=== PATIENT | female | born 1950 | race Caucasian/White ===

== ENCOUNTER 2016-12-14 13:10 | Inpatient (IN) | payer OTHER, MEDICARE ==
[~2016-12-14] VITALS: Ht 152.4 cm; Wt 82.3 kg
[2016-12-21] MEDS ORDERED: TRIA37.53 PO (09:38)
[2016-12-21] MEDS ORDERED: ROSU5 PO (09:38)
[2016-12-21] MEDS ORDERED: ASPI1TAB69 PO (09:39)
[2016-12-21] MEDS ORDERED: NITR1CAP36 PO (09:39)
[2016-12-21] MEDS ORDERED: VITA10003 PO (09:50)
[2016-12-21] MEDS ORDERED: ZANT150T2 PO (14:39)
[2016-12-21] MEDS ORDERED: TUMS500C CHEW (14:39)
[2016-12-22] MEDS ORDERED: SODIUM CHLOR 0.9% 250 ML INJ 250 ML ONE (05:40)
[2016-12-22] MEDS ORDERED: VANCOMYCIN HCL 1000 MG VIAL ONE (05:41)
[2016-12-22] MEDS ORDERED: LACTATED RINGER'S 1000 ML INJ 1,000 ML ONE (05:41)
[2016-12-22] MEDS: CHLORHEXIDINE GLUCONATE 4% SOLN 120 ML BTL TOPICAL SCH (05:46)
[2016-12-22 05:53] VITALS: BP 166/76; PULSE 68; RESP 18; TEMP 98.4; O2SAT 100
[2016-12-22 06:05] LABS: BLOOD, URINE NEG (NEG); COMMENT (UR) CULT NOT INDICATED; CULTURE IF INDICATED CULT NOT INDICATED; GLUCOSE,URINE NEG (NEG); HYALINE CAST, URINE 1 /lpf (RARE); KETONE, URINE NEG (NEG); MUCUS URINE FEW /lpf (OCC); NITRITE,URINE NEG (NEG); SQUAMOUS EPITHELIAL CELL URINE <1 /hpf (0-5)
[2016-12-22 06:06] LABS: URINE COLOR YELLOW (YELLW/STRAW)
[2016-12-22] MEDS ORDERED: LACTATED RINGER'S 1000 ML IV PRN (06:15)
[2016-12-22] MEDS ORDERED: INSULIN HUMAN REGULAR 1,000 UNITS/10 ML VIAL SQ PRN (06:15)
[2016-12-22] MEDS ORDERED: CHLORHEXIDINE GLUCONATE 2 % 1 PACK (2 CLOTHS) TOPICAL PRN (06:15)
[2016-12-22] MEDS ORDERED: SODIUM CHLORID 0.9% 500 ML IV PRN (06:15)
[2016-12-22] MEDS ORDERED: METOPROLOL TARTRATE 25 MG TAB PO PRN (06:15)
[2016-12-22] MEDS ORDERED: POVIDONE IODINE 5% (ANTISEPSIS KIT) 4 APPLICATIONS EACH NARE PRN (06:15)
[2016-12-22] MEDS ORDERED: VANCOMYCIN 1000 MG/NS 250 ML (for <70 kg) IV SCH ×2 (06:30)
[2016-12-22] MEDS: EXPAREL PERI-ARTICULAR INJECTION (TOTAL VOL. 60 ML) P-ARTICULR SCH ×4 (06:30→07:46)
[2016-12-22] MEDS ORDERED: TRANEXAMIC ACID IV SCH (06:30)
[2016-12-22] MEDS ORDERED: SODIUM CHLORIDE 0.9% IV SCH (06:30)
[2016-12-22] MEDS ORDERED: ceFAZolin 2 GM PREMIX 50 ML IV SCH (06:30)
[2016-12-22] MEDS ORDERED: GENTAMICIN SULFATE 80 MG/2 ML VIAL ONE (06:37)
[2016-12-22] MEDS ORDERED: MIDAZOLAM HCL 2 MG/2 ML VIAL ONE (06:44)
[2016-12-22] MEDS ORDERED: ACETAMINOPHEN 1000 MG/100 ML VIAL IV ONE (06:44)
[2016-12-22] MEDS ORDERED: fentaNYL CITRATE 250 MCG/5 ML AMP ONE (06:45)
[2016-12-22] MEDS ORDERED: DEXAMETHASONE SOD PHOS 4 MG/ML VIAL ONE (06:45)
[2016-12-22] MEDS ORDERED: FAMOTIDINE 20 MG/2 ML VIAL ONE (06:45)
[2016-12-22] MEDS ORDERED: XARE10TA PO (08:29)
[2016-12-22] MEDS ORDERED: WALKER/ADULT/FO1 MIS (08:29)
[2016-12-22] MEDS ORDERED: HYDR-3366 PO (08:29)
--- NOTE | 2016-12-22 08:29 | HHI.FF ---
Face to Face Verification Diagnosis: (1) S/P total hip arthroplasty Physical Therapy Gait training Hip: Total hip, Protocol: Left, Progress to weight bearing Left LE Weight Bearing: WB as tolerated Nursing Dressing Changes: Do not change dressing, Coverderm/Primapore (begin adding xeroform POD 10) I have seen patient Nadeen Almonte on 12/22/16. My clinical findings support the need for the requested home health care services because: Ltd mobility - disease progression I certify that my clinical findings support that this patient is homebound because: Post-op weakness Luis Acosta Dec 22, 2016 08:29
--- NOTE | 2016-12-22 08:31 | PD.ORT.PN ---
Subjective Subjective Remarks POD 0 s/p left LOUISE Objective Vitals Vital Signs Date Time Temp Pulse Resp B/P Pulse Ox O2 Delivery O2 Flow Rate FiO2 12/22/16 05:53 98.4 68 18 166/76 100 Objective Remarks LLE: dressing clean and dry. intact. +drain Assessment & Plan Assessment and Plan 1) Left LOUISE - POD 1 -WBAT -DC drain POD 2 with first dressing change -daily dressing changes POD2 -CM for home with C vs rehab -plan for DC Sunday -DVT prophylaxis with lovenox and discharge with xarelto -scripts on chart -f/u with [facility] or [facility] in 2 weeks Luis Acosta Dec 22, 2016 08:31
--- NOTE | 2016-12-22 09:12 | PD.OP ---
cc: Pete Manzanares MD Operative Report Date of Surgery: Dec 22, 2016 Preoperative Diagnosis: Severe left hip osteoarthritis Postoperative Diagnosis: Procedure: Left total hip arthroplasty via anterior approach Anesthesia: Gen. Surgeon: Pete Manzanares Sample Distributor(s): AUGUSTO Tran PA-C The surgical procedure was assisted by my physician virtual customer assistant. My P.A. presence was necessary throughout this case for the manipulation and positioning of the surgical extremity. My P.A. was assisting me throughout the duration of this procedure. The skill set of a physician virtual customer assistant was medically necessary to complete this procedure. During the surgical case the director surgical was working at the back table and the physician virtual customer assistant was directly assisting me. Operation and Findings: PLAN OF ACTIVITY Weight bear as tolerated. DRAINS: 7-mm MARY ANN drain. IMPLANTS USED DePuy Corail size 10 collared stem with a size [48] Spring Hope Gription cup and a [32 +1] ceramic Biolox ceramic head. DETAILS OF PROCEDURE: This patient has a long history of hip pain. Patient was found to have severe osteoarthritis. The patient had radiographic evidence of joint space narrowing with [id number] arthritis and osteophytes around the acetabulum as well as the femoral head. There was also some cystic changes. The patient failed conservative treatment with pain medications, anti-inflammatories, physical therapy, assistive devices including a cane, as well as therapeutic injection of the hip. Patient's hip arthritis was limiting his ability to ambulate and perform activities of daily living. The patient wished to proceed with surgery and informed consent was obtained. Operative site was marked. I discussed both posterior approach and anterior approach with the patient and decision was made for anterior approach. Patient was brought to OR and placed on OR table. IV sedation and general anesthesia was administered by anesthesiologist. Patient positioned on a Janette table and was given IV antibiotics. Time-out procedure was performed. The hip and thigh were prepped with alcohol followed by Hibiclens. The thigh was draped in the usual sterile fashion. Clean Air Suite was used for this procedure. The procedure began with a 5-inch incision over the anterolateral thigh. Subcutaneous tissue was dissected with Bovie. The fascia over the tensa fasciae latae was incised. Care was taken to avoid injury to the lateral femoral cutaneous nerve. The tensor muscle was retracted laterally. Sartorius was retracted medially. Retractors were now placed. The reflected head of the rectus is now elevated. A capsulotomy was performed over the anterior head capsule. Sutures were placed to help retract the capsule. At this point the femoral head and neck were identified. With soft tissue protected, oscillating saw was used to make a cut through the femoral neck, the femoral head was now removed. At this point attention was turned to preparation of the acetabulum. The labrum was excised. The acetabulum was sequentially reamed up to size [48]. A Spring Hope cup was now placed. Fluoroscopy was used to aid in identification of appropriate version. Cup was fully impacted and found to have excellent fit. Hole eliminator was now placed. The liner was now impacted into the cup. At this point the hip was externally rotated. A hook was placed around the proximal femur. The capsule was released off the lateral and medial femur. The hip was now extended and adducted. Retractors were placed around the proximal femur to allow for exposure. A box osteotome was used to remove the lateral cortex of the femoral neck. A broach was used to help lateralize the prosthesis. Canal finder was used to create a path down the canal. Next, the canal was sequentially broached up to size [10]. This was found to be an excellent fit. Calcar planer was placed. A standard head was placed, and the hip was reduced. The hip was found to have excellent stability with good range of motion. The leg lengths were measured under fluoroscopy and found to be equal compared to preoperatively. Trial broach was removed. The Corail stem was opened. Stem was fully impacted into the proximal femur in appropriate version. The femoral head was placed. The hip was again reduced. Fluoroscopy confirmed excellent alignment of prosthesis. The wound was thoroughly irrigated and capsule was closed with #1 Vicryl. The fascia over the tensor fasciae muscle was closed with #1 Vicryl, subcutaneous tissue was closed with 3-0 Vicryl and the skin was closed with betsey and Dermabond skin closure. The capsule layers were injected with a mixture of saline and bupivicaine. Dressings were applied. The patient was transferred to Recovery Room in stable condition. Pete Manzanares MD Dec 22, 2016 09:12
[2016-12-22] MEDS ORDERED: NALOXONE HCL 0.4 MG/ML AMP IV PRN (09:15)
[2016-12-22] MEDS ORDERED: ONDANSETRON HCL 4 MG/2 ML VIAL IVP PRN (09:15)
[2016-12-22] MEDS ORDERED: MORPHINE SULFATE 4 MG/ML INJ IV PUSH PRN (09:15)
[2016-12-22] MEDS ORDERED: Post-op Orders (for Pharmacy) MISC XX ONE (09:15)
[2016-12-22] MEDS ORDERED: ACETAMINOPHEN/HYDROcodone 325 MG/10 MG TAB PO PRN (09:15)
[2016-12-22] MEDS ORDERED: ENOXAPARIN SODIUM 40 MG/0.4 ML SYRINGE SQ SCH (09:15)
[2016-12-22] MEDS ORDERED: TRANEXAMIC ACID INJ 1,000 MG in SODIUM CHLORIDE 0.9% INJ 100 ML IV SCH (09:30)
[2016-12-22] MEDS ORDERED: SODIUM CHLORIDE 0.9% FLUSH 10 ML FLUSH IV FLUSH PRN (09:45)
[2016-12-22] MEDS ORDERED: *morphine SULFATE 8 MG/ML PERIprocedure ONLY ONE ×2 (09:47→10:08)
[2016-12-22] MEDS: LACTATED RINGER'S 1000 ML INJ 1,000 ML IV SCH ×2 (09:51→20:50)
--- NOTE | 2016-12-22 10:25 | RADRPT ---
EXAM DATE/TIME: 12/22/2016 08:33 [facility] COMPARISON: No previous studies available for comparison. INDICATIONS : Post-op total left hip arthroplasty. MEDICAL HISTORY : None. SURGICAL HISTORY : None. ENCOUNTER: Initial ACUITY: 1 day PAIN SCORE: Non-responsive. LOCATION: Left HIP. FINDINGS: Left total hip arthroplasty is identified. The hardware is intact. Alignment is anatomic. The adjacen t pelvis is focally unremarkable. CONCLUSION: Satisfactory appearance of left LOUISE Bhaskar Fan MD on December 22, 2016 at 10:22 Board Certified Radiologist. This report was verified electronically.
--- NOTE | 2016-12-22 10:38 | RADRPT ---
EXAM DATE/TIME: 12/22/2016 09:27 [facility] COMPARISON: HIP LEFT (AP&LAT 2/3VWS) WO AP PELVIS, December 22, 2016, 8:33. INDICATIONS : Post op left hip replacement MEDICAL HISTORY : None. SURGICAL HISTORY : None. ENCOUNTER: Subsequent ACUITY: 1 day PAIN SCORE: Non-responsive. LOCATION: Left hip FINDINGS: Left total hip arthroplasty is noted. Femoral and acetabular components appear well seated. Surgical drain and skin betsey are present. Normal bone density. Small amount of subcutaneous air is seen. CONCLUSION: Postop left total hip arthroplasty, satisfactory appearance, components appear well seated. Elmer Hays MD on December 22, 2016 at 10:36 Board Certified Radiologist. This report was verified electronically.
[2016-12-22 10:40] VITALS: BP 129/70; PULSE 66; RESP 17; TEMP 95.9; O2SAT 100
[2016-12-22] MEDS ORDERED: DO NOT ADM ANY ANTICOAGULANT DRUGS PRN (11:00)
[2016-12-22] MEDS: KETOROLAC TROMETHAMINE 30 MG/ML (IVP) VIAL IV PUSH SCH ×2 (11:14→23:23)
[2016-12-22] MEDS ORDERED: PROPOFOL 200 MG/20 ML AMP IV ONE (12:00)
[2016-12-22] MEDS ORDERED: ONDANSETRON HCL 4 MG/2 ML VIAL IV PUSH ONE (12:00)
[2016-12-22] MEDS ORDERED: ePHEDrine/NS 25 MG/5 ML SYR IV ONE (12:00)
[2016-12-22] MEDS ORDERED: NEOSTIGMINE 3 MG/3 ML SYR IV ONE (12:00)
[2016-12-22] MEDS ORDERED: LACTATED RINGER'S 1000 ML INJ 1,000 ML IV ONE (12:00)
[2016-12-22] MEDS: ceFAZolin 2 GM PREMIX 50 ML IV SCH ×2 (13:57→20:49)
[2016-12-22 16:00] VITALS: BP 123/59; PULSE 58; RESP 16; TEMP 98.1; O2SAT 100
[2016-12-22] MEDS: VANCOMYCIN INJ 1,000 MG in SODIUM CHLOR 0.9% 250 ML INJ 250 ML IV SCH (18:06)
[2016-12-22] MEDS: NITROFURANTOIN MONOHYD MACROCR 100 MG CAP PO SCH (18:07)
[2016-12-22 20:15] VITALS: BP 117/67; PULSE 64; RESP 16; TEMP 96; O2SAT 100
[2016-12-22] MEDS: SODIUM CHLORIDE 0.9% FLUSH 10 ML FLUSH IV FLUSH SCH (20:50)
[2016-12-22] MEDS ORDERED: ATORVASTATIN 10 MG TAB PO SCH (21:00)
[2016-12-22 23:20] VITALS: BP 123/76; PULSE 66; RESP 16; TEMP 96; O2SAT 100
[2016-12-22] MEDS ORDERED: FAMOTIDINE 20 MG TAB PO PRN (23:30)
[2016-12-23] MEDS: ceFAZolin 2 GM PREMIX 50 ML IV SCH (02:23)
[2016-12-23 04:05] VITALS: BP 128/66; PULSE 68; RESP 16; TEMP 96.2; O2SAT 98
[2016-12-23 05:32] LABS: HEMATOCRIT 33.6 % (35.0-46.0); REVIEW FLAG FINAL
[2016-12-23] MEDS: CHLORHEXIDINE GLUCONATE 4% SOLN 120 ML BTL TOPICAL SCH (06:30)
[2016-12-23] MEDS: VANCOMYCIN INJ 1,000 MG in SODIUM CHLOR 0.9% 250 ML INJ 250 ML IV SCH (06:32)
[2016-12-23] MEDS: LACTATED RINGER'S 1000 ML INJ 1,000 ML IV SCH (06:35)
[2016-12-23 07:12] VITALS: BP 134/62; PULSE 70; RESP 17; TEMP 96.4; O2SAT 99
--- NOTE | 2016-12-23 07:59 | PD.ORT.PN ---
Subjective Post Op Day #: 2 Subjective Remarks POD #1 Patient sitting upright comfortably in bed. Admits left hip pain is well controlled. Admits to nausea and vomiting yesterday - subsided at this time. States she successfully walked yesterday. No new complaints. Objective Vitals Vital Signs Date Time Temp Pulse Resp B/P Pulse Ox O2 Delivery O2 Flow Rate FiO2 12/23/16 04:05 96.2 68 16 128/66 98 12/22/16 23:20 96.0 66 16 123/76 100 12/22/16 20:15 96.0 64 16 117/67 100 12/22/16 19:08 Room Air 12/22/16 16:00 98.1 58 16 123/59 100 12/22/16 10:40 95.9 66 17 129/70 100 12/22/16 10:15 97.4 61 16 141/74 100 Nasal Cannula 2 12/22/16 10:00 66 17 135/76 95 12/22/16 09:45 80 12 139/77 97 12/22/16 09:30 73 10 146/76 100 Simple Mask 6 12/22/16 09:26 96.0 108 14 146/67 100 Simple Mask 6 I/O 12/22/16 12/22/16 12/22/16 12/23/16 12/23/16 12/23/16 07:00 15:00 23:00 07:00 15:00 23:00 Intake Total 1000 ml 1622 ml 998 ml Output Total 480 ml 485 ml 1025 ml Balance 520 ml 1137 ml -27 ml Intake Oral 840 ml 240 ml IV Total 782 ml 758 ml Other 1000 ml Output Urine Total 400 ml 1000 ml Drainage Total 30 ml 85 ml 25 ml Estimated Blood Loss 200 ml Other 250 ml # Bowel Movements 0 0 Result Diagram: 12/23/16 0453 12/23/16 0453 Imaging Last 24 hours Impressions Hip and Pelvis X-Ray 12/22/16 0904 Signed Impressions: Service Date/Time: Thursday, December 22, 2016 09:27 - CONCLUSION: Postop left total hip arthroplasty, satisfactory appearance, components appear well seated. Elmer Hays MD Procedures Left LOUISE - [facility] Objective Remarks LLE: dressing clean and dry. intact. +drain Assessment & Plan Ortho Post Op Day #: 1 Problem List: (1) S/P total hip arthroplasty Assessment and Plan 1) Left LOUISE - POD 1 -WBAT -DC drain POD today - d/c pato today -daily dressing changes starting today -CM for home with [facility] vs rehab -plan for DC Sunday -DVT prophylaxis with lovenox and discharge with xarelto -scripts on chart -f/u with [facility] or [facility] in 2 weeks Gricelda Lema Dec 23, 2016 07:59
[2016-12-23 08:11] VITALS: O2SAT 100
[2016-12-23] MEDS ORDERED: NON-FORMULARY DRUG (Ranitidine (Zantac) 150 MG) PO SCH (09:00)
[2016-12-23] MEDS: SODIUM CHLORIDE 0.9% FLUSH 10 ML FLUSH IV FLUSH SCH ×2 (09:00→20:19)
[2016-12-23] MEDS: ENOXAPARIN SODIUM 30 MG/0.3 ML SYRINGE SQ SCH (10:28)
[2016-12-23] MEDS: KETOROLAC TROMETHAMINE 30 MG/ML (IVP) VIAL IV PUSH SCH ×2 (10:29→23:16)
[2016-12-23] MEDS: NITROFURANTOIN MONOHYD MACROCR 100 MG CAP PO SCH ×2 (10:29→18:50)
[2016-12-23] MEDS: TRIAMTERENE/HCTZ 37.5 MG/25 MG CAP PO SCH (10:30)
[2016-12-23 11:53] VITALS: BP 124/66; PULSE 64; RESP 17; TEMP 96.7; O2SAT 98
[2016-12-23 15:55] VITALS: BP 146/69; PULSE 63; RESP 17; TEMP 96.8; O2SAT 97
[2016-12-23] MEDS: DOCUSATE SODIUM 100 MG CAP PO SCH (20:18)
[2016-12-23] MEDS: ACETAMINOPHEN/HYDROcodone 325 MG/7.5 MG TAB PO PRN (20:18)
[2016-12-23 20:20] VITALS: BP 158/73; PULSE 73; RESP 16; TEMP 96.9; O2SAT 99
[2016-12-23] MEDS ORDERED: ASPIRIN EC 81 MG TABEC PO SCH (21:00)
[2016-12-23] MEDS ORDERED: CHOLECALCIFEROL (VIT D3) 1000 UNIT TAB PO SCH (21:00)
[2016-12-23] MEDS ORDERED: CRESTOR 5 MG PO SCH (21:00)
[2016-12-24 00:10] VITALS: BP 112/59; PULSE 65; RESP 16; TEMP 97.2; O2SAT 96
[2016-12-24 08:00] VITALS: BP 129/67; PULSE 69; RESP 16; TEMP 96; O2SAT 99
[2016-12-24] MEDS: NITROFURANTOIN MONOHYD MACROCR 100 MG CAP PO SCH (09:18)
[2016-12-24] MEDS: TRIAMTERENE/HCTZ 37.5 MG/25 MG CAP PO SCH (09:18)
[2016-12-24] MEDS: DOCUSATE SODIUM 100 MG CAP PO SCH (09:18)
[2016-12-24] MEDS: ENOXAPARIN SODIUM 30 MG/0.3 ML SYRINGE SQ SCH (09:19)
[2016-12-24] MEDS: SODIUM CHLORIDE 0.9% FLUSH 10 ML FLUSH IV FLUSH SCH (09:20)
[2016-12-24 12:00] VITALS: BP 108/76; PULSE 72; RESP 16; TEMP 96.2; O2SAT 100
--- NOTE | 2016-12-24 12:39 | PD.ORT.PN ---
Subjective Post Op Day #: 2 Subjective Remarks POD #2 Patient walking up and down the halls with PT. Admits left hip pain is well controlled and she is ready to go home. No new complaints. Objective Vitals Vital Signs Date Time Temp Pulse Resp B/P Pulse Ox O2 Delivery O2 Flow Rate FiO2 12/24/16 08:00 96.0 69 16 129/67 99 12/24/16 00:10 97.2 65 16 112/59 96 12/23/16 20:20 96.9 73 16 158/73 99 12/23/16 15:55 96.8 63 17 146/69 97 I/O 12/23/16 12/23/16 12/23/16 12/24/16 12/24/16 12/24/16 07:00 15:00 23:00 07:00 15:00 23:00 Intake Total 998 ml 720 ml 480 ml 240 ml Output Total 1025 ml 330 ml Balance -27 ml 390 ml 480 ml 240 ml Intake Oral 240 ml 720 ml 480 ml 240 ml IV Total 758 ml Output Urine Total 1000 ml 300 ml Drainage Total 25 ml 30 ml # Voids 3 1 1 # Bowel Movements 0 0 0 0 Result Diagram: 12/23/16 0453 12/23/16 0453 Imaging Last 24 hours Impressions Hip and Pelvis X-Ray 12/22/16 0904 Signed Impressions: Service Date/Time: Thursday, December 22, 2016 09:27 - CONCLUSION: Postop left total hip arthroplasty, satisfactory appearance, components appear well seated. Elmer Hays MD Procedures Left LOUISE - [facility] Objective Remarks LLE: dressing clean and dry. intact. NVI. no calf pain, negative shoaib's Assessment & Plan Ortho Post Op Day #: 2 Problem List: (1) S/P total hip arthroplasty Assessment and Plan 1) Left LOUISE - POD 2 -WBAT - daily dressing changes starting today, change dressing before discharge. - pt requesting discharge, clear for discharge from an orthopedic standpoint today with home health -DVT prophylaxis upon discharge with xarelto -scripts on chart -f/u with [facility] or [facility] in 2 weeks Gricelda Lema Dec 24, 2016 12:39
[2016-12-24] MEDS: ACETAMINOPHEN/HYDROcodone 325 MG/7.5 MG TAB PO PRN (14:11)
== END 2016-12-24 15:04 | disposition home health service (06) | DRG 470 ==
LOC: HSDI 12-22 05:09 → N06A 12-22 10:42
PROVIDERS: ADMIT Orthopaedic Surgery Orthopaedic Trauma; ATTEND Orthopaedic Surgery Orthopaedic Trauma
PROC: 0SRB04A Replacement of Left Hip Joint with Ceramic on Polyethylene Synthetic Substitute, Uncemented, Open Approach (ICD-10-PCS; principal; 2016-12-22 07:01)
DX: M16.12 Unilateral primary osteoarthritis, left hip (principal); I10 Essential (primary) hypertension; E78.5 Hyperlipidemia, unspecified; K21.9 Gastro-esophageal reflux disease without esophagitis; Z88.6 Allergy status to analgesic agent; Z88.2 Allergy status to sulfonamides
CPT/HCPCS: 73501; 73502; 76000; 81001; 82565; 85014; 85018; 86850; 86900; 86901; C1776; C9290; J0131; J0690; J1100; J1580; J1650; J1885; J2250; J2270; J2405; J2710; J3010; J3370; J7050; J7120; L1830